=== PATIENT | female | born 1955 | race Caucasian/White ===

== ENCOUNTER → 2016-08-15 | Outpatient (CLI) | payer OTHER ==
--- NOTE | 2016-08-19 11:41 | MM ---
Reason for exam: screening (asymptomatic). Last mammogram was performed 2 years ago. History: Patient is postmenopausal. Took estrogen for 6 years beginning at age 46. Physical Findings: A clinical breast exam by your physician is recommended on an annual basis and results should be correlated with mammographic findings. MG Screening Mammo w CAD Bilateral CC and MLO view(s) were taken. Prior study comparison: August 30, 2014, bilateral MG screening mammo w CAD. December 22, 2012, CAD bilateral diagnostic mammogram. The breast tissue is extremely dense which could obscure a lesion on mammography. Finding: There are typically benign calcifications in both breasts. No significant changes in finding since August 30, 2014 and December 22, 2012. ASSESSMENT: Benign, BI-RAD 2 RECOMMENDATION: Routine screening mammogram of both breasts in 1 year.
== END | disposition home or self-care (01) ==
LOC: RADMAMWWP 16:49
PROVIDERS: ATTEND Family Medicine
DX: Z12.31 Encounter for screening mammogram for malignant neoplasm of breast (principal)

== ENCOUNTER 2016-11-21 06:50 | Day surgery (SDC) | payer OTHER ==
[2016-11-18 14:35] VITALS: BMI 23.6
[~2016-11-21 06:50] MED LIST: LACTATED RINGERS 1,000 ML IV SCH
[2016-11-21 07:01] VITALS: RESP 18; TEMP 98.2
[2016-11-21] MEDS ORDERED: LACTATED RINGERS 1,000 ML IV ONE (07:08)
[2016-11-21] MEDS ORDERED: PROPOFOL 10 MG/ML 20 ML VIAL IV ONE (07:46)
[2016-11-21] MEDS ORDERED: LIDOCAINE 1% INJ 10MG/ML (20 ML MDV) ONE (07:46)
--- NOTE | 2016-11-21 08:31 | P.OP ---
Date of Procedure: 11/21/16 Preoperative Diagnosis: Screening colonoscopy Postoperative Diagnosis: Sigmoid colon polyps Procedure(s) Performed: Colonoscopy with polypectomy using hot snare and cold biopsy forceps Implants: Anesthesia: KEVON Surgeon: Autumn Adrian Pathology: other Disposition: PACU Indications for Procedure: Operative Findings: Description of Procedure: The patient was brought to the endoscopy suite and placed in lateral decubitus position. IV sedation was given as per anesthesia team. A timeout was performed to verify correct patient and correct procedure.Perianal examination did not reveal any external hemorrhoids. Digital rectal examination was performed. A well-lubricated endoscope was passed per rectally and was gradually advanced beyond the sigmoid colon, splenic flexure, transverse colon, hepatic flexure and cecum. The ileocecal valve was visualized. Then no diverticulosis noted without any evidence of diverticulitis. Scope was gradually withdrawn inspecting all the mucosal surfaces. A few polypa were seen in the sigmoid colon at biopsied and completely removed with the help of a hot snare and cold biopsy forceps. Bowel prep was good. No other polyps or masses noted. Retroflexed in the rectum and moderate size internal hemorrhoids were noted which was not bleeding at this time. The scope was gradually withdrawn. Patient tolerated the procedure well and was taken to post anesthesia care unit in stable condition. Recommend repeat colonoscopy in 5 years Plan - Discharge Summary New Discharge Prescriptions: No Action Lutein 25 mg PO DAILY Loratadine [Claritin] 10 mg PO DAILY Lisinopril [Zestril] 20 mg PO DAILY Hydrochlorothiazide [Hydrodiuril] 25 mg PO DAILY Atorvastatin [Lipitor] 10 mg PO HS Alendronate Sodium [Fosamax] 70 mg PO MUÑOZ Ibuprofen [Motrin] 800 mg PO Q8H PRN PRN Reason: Pain Flaxseed Oil [[place]-3 Flaxseed Oil] 1,300 mg PO DAILY Ascorbic Acid [Vitamin C] 1,000 mg PO DAILY True Heart 1 tab PO DAILY [place] 3-6-9 1 cap PO DAILY Collagen Plus C 1 tab PO DAILY Magnesium 500 mg PO DAILY Marquise/D3/Mag11/Zinc/Safety Technician/Sree/Bor [Caltrate 600+D Plus Tablet] 1 each PO DAILY Cholecalciferol (Vitamin D3) [Vitamin D3] 2,000 unit PO DAILY Discharge Medication List Alendronate Sodium [Fosamax] 70 mg PO MUÑOZ 11/18/16 [History] Ascorbic Acid [Vitamin C] 1,000 mg PO DAILY 11/18/16 [History] Atorvastatin [Lipitor] 10 mg PO HS 11/18/16 [History] Marquise/D3/Mag11/Zinc/Safety Technician/Sree/Bor [Caltrate 600+D Plus Tablet] 1 each PO DAILY 08/02 [History] Cholecalciferol (Vitamin D3) [Vitamin D3] 2,000 unit PO DAILY 11/18/16 [History] Collagen Plus C 1 tab PO DAILY 11/18/16 [History] Flaxseed Oil [[place]-3 Flaxseed Oil] 1,300 mg PO DAILY 11/18/16 [History] Hydrochlorothiazide [Hydrodiuril] 25 mg PO DAILY 11/18/16 [History] Ibuprofen [Motrin] 800 mg PO Q8H PRN 11/18/16 [History] Lisinopril [Zestril] 20 mg PO DAILY 11/18/16 [History] Loratadine [Claritin] 10 mg PO DAILY 11/18/16 [History] Lutein 25 mg PO DAILY 11/18/16 [History] Magnesium 500 mg PO DAILY 11/18/16 [History] [place] 3-6-9 1 cap PO DAILY 11/18/16 [History] True Heart 1 tab PO DAILY 11/18/16 [History]
[2016-11-21 08:55] VITALS: BP 129/68; PULSE 70
== END 2016-11-21 09:14 | disposition home or self-care (01) ==
LOC: ORWHC2ENDO 06:50
PROVIDERS: ATTEND Surgery
DX: Z12.11 Encounter for screening for malignant neoplasm of colon (principal); K63.5 Polyp of colon; K64.8 Other hemorrhoids; I10 Essential (primary) hypertension; Z79.51 Long term (current) use of inhaled steroids; Z79.899 Other long term (current) drug therapy
CPT/HCPCS: 88305; 45385; J2001; J2704; 45380

== ENCOUNTER → 2017-09-16 | Outpatient (CLI) | payer OTHER ==
--- NOTE | 2017-09-17 10:39 | MM ---
Reason for exam: screening (asymptomatic). Last mammogram was performed 1 year and 1 month ago. History: Patient is postmenopausal. Took estrogen for 6 years beginning at age 46. Physical Findings: A clinical breast exam by your physician is recommended on an annual basis and results should be correlated with mammographic findings. MG Screening Mammo w CAD Bilateral CC and MLO view(s) were taken. Prior study comparison: August 15, 2016, bilateral MG screening mammo w CAD. August 30, 2014, bilateral MG screening mammo w CAD. The breast tissue is heterogeneously dense. This may lower the sensitivity of mammography. Stable benign calcifications. No significant changes when compared with prior studies. ASSESSMENT: Benign, BI-RAD 2 RECOMMENDATION: Routine screening mammogram of both breasts in 1 year.
== END ==
LOC: RADMAMWWP 16:46
PROVIDERS: ATTEND Family Medicine
DX: Z12.31 Encounter for screening mammogram for malignant neoplasm of breast (principal)
CPT/HCPCS: 77067

== ENCOUNTER → 2018-01-13 | Outpatient (CLI) | payer OTHER ==
[2018-01-13 15:57] LABS: HCT 40.3 % (34.0-46.0); HGB 13.7 gm/dL (11.4-16.0); MCH 30.2 pg (25.0-35.0); MCV 88.8 fL (80.0-100.0); Mean Platelet Volume 6.6; Platelet Count 297 k/uL (150-450); RBC 4.54 m/uL (3.80-5.40); RDW 13.4 % (11.5-15.5); WBC 7.9 k/uL (3.8-10.6)
[2018-01-13 16:37] LABS: C Reactive Protein <5.0 mg/L (<10.0); Uric Acid 6.8 mg/dL (3.7-7.4)
[2018-01-13 19:35] LABS: Erythrocyte Sedimentation Rate 2 mm/hr (0-20)
[2018-01-14 02:27] LABS: Protein, Total 6.5 g/dL (6.2-8.2); Rheumatoid Factor 9 IU/mL (0-15); Streptolysin O Ab(ASO) 123 IU/mL (0-200)
[2018-01-14 11:01] LABS: T4, Free (Free Thyroxine) 1.05 ng/dL (0.78-2.19)
[2018-01-14 11:14] LABS: HLA B27 NEGATIVE
[2018-01-14 13:38] LABS: Albumin 4.18 g/dL (3.80-4.90); Gamma Globulin 0.66 g/dL (0.70-1.50)
== END | disposition home or self-care (01) ==
LOC: LABWHC1 15:09
PROVIDERS: ATTEND Orthopaedic Surgery
DX: M25.561 Pain in right knee (principal); M25.461 Effusion, right knee; M17.11 Unilateral primary osteoarthritis, right knee; S83.241A Other tear of medial meniscus, current injury, right knee, initial encounter
CPT/HCPCS: 36415; 84165; 84439; 84443; 84550; 85027; 85652; 86038; 86060; 86140; 86431; 86618; 86812

== ENCOUNTER 2018-09-23 15:20 | Emergency (ER) | payer OTHER ==
[2018-09-23 15:33] VITALS: TEMP 99
[2018-09-23] MEDS ORDERED: ACETAMINOPHEN TAB 500 MG TAB PO STA (15:49)
--- NOTE | 2018-09-23 15:53 | ED ---
Head Injury HPI - General Chief complaint: Head Injury Stated complaint: [facility] - HEAD INJURY Time Seen by Provider: 09/23/18 15:37 Source: patient Mode of arrival: wheelchair Limitations: no limitations - History of Present Illness Initial comments: This is a 63-year-old female who presents emergency department for a head injury. She states that this morning she was at work when a large metal door was opened and hit her in the right side of the head. She states that she did not have any loss of consciousness and did not fall to the ground however did have a little bit of visual changes afterwards. She does not describe it as double vision however. She describes it as blurry vision. She states that she had a persistent headache on the right side of her head throughout the day. She's been having some difficulty with concentration and also a little bit of nausea. She denies any vomiting. She states that she does not take any anticoagulation or aspirin. She did try taking a Motrin 800 earlier today however she states it did not improve her symptoms. She denies any focal weakness in her arms or legs. She denies any photophobia or phonophobia. No difficulty with coordination or ambulation. No other acute complaints. - Related Data Home Medications Medication Instructions Recorded Confirmed Alendronate Sodium [Fosamax] 70 mg PO MUÑOZ 11/18/16 09/23/18 Ascorbic Acid [Vitamin C] 1,000 mg PO DAILY 11/18/16 09/23/18 Atorvastatin [Lipitor] 10 mg PO HS 11/18/16 09/23/18 Marquise/D3/Mag11/Zinc/Rn Radiology/Sree/Bor 1 tab PO DAILY 11/18/16 09/23/18 [Caltrate 600+D Plus Tablet] Cholecalciferol (Vitamin D3) 2,000 unit PO DAILY 11/18/16 09/23/18 [Vitamin D3] Collagen Plus C 1 tab PO DAILY 11/18/16 09/23/18 Flaxseed Oil [[place]-3 Flaxseed Oil] 1,000 mg PO DAILY 11/18/16 09/23/18 Hydrochlorothiazide [Hydrodiuril] 25 mg PO DAILY 11/18/16 09/23/18 Ibuprofen [Motrin] 800 mg PO Q8H PRN 11/18/16 09/23/18 Lisinopril [Zestril] 20 mg PO DAILY 11/18/16 09/23/18 Loratadine [Claritin] 10 mg PO DAILY 11/18/16 09/23/18 Lutein 20 mg PO DAILY 11/18/16 09/23/18 Magnesium 200 mg PO DAILY 11/18/16 09/23/18 [place] 3-6-9 1 cap PO DAILY 11/18/16 09/23/18 True Heart 1 tab PO DAILY 11/18/16 09/23/18 Allergies/Adverse reactions: Allergies Allergy/AdvReac Type Severity Reaction Status Date / Time No Known Allergies Allergy Verified 09/23/18 15:55 Review of Systems ROS Statement: Those systems with pertinent positive or pertinent negative responses have been documented in the HPI. ROS Other: All systems not noted in ROS Statement are negative. Past Medical History Past Medical History: Hyperlipidemia, Hypertension History of Any Multi-Drug Resistant Organisms: None Reported Past Surgical History: Hysterectomy, Orthopedic Surgery Additional Past Surgical History / Comment(s): LT KNEE, LT SHOULDER, RT THUMB SURG Past Anesthesia/Blood Transfusion Reactions: No Reported Reaction Smoking Status: Never smoker - Past Family History Mother Family Medical History: No Reported History General Exam - General Exam Comments Initial Comments: Constitutional: Awake alert Appears comfortable Head: Normocephalic atraumatic , tenderness to palpation along the temporal area of the right scalp. No lacerations or hematomas noted Eyes: no conjunctival injection No scleral icterus EOMI, pupils are 3 mm and reactive bilaterally Neck: No JVD Supple, no midline tenderness Heart: Regular rate rhythm normal S1-S2 no murmurs Lungs: Clear to auscultation bilaterally No wheezing No rales Abdomen: Soft nondistended nontender Extremities: Non edematous DP pulses intact Radial pulses intact Neuro: A&Ox3, cranial nerves II through XII are grossly intact, 5 out of 5 strength in upper and lower extremities bilaterally, no ataxia with finger-nose testing No focal neurologic deficits Psych: Appropriate mood and affect Limitations: no limitations Course Vital Signs 09/23/18 15:30 Temperature 99 F Pulse Rate 74 Respiratory 16 Rate Blood Pressure 156/86 O2 Sat by Pulse 97 Oximetry Medical Decision Making - Medical Decision Making This is a 63-year-old female who presents emergency department for headache injury. The patient had no focal neurologic deficits on examination however due to her symptoms and computed tomography scan was performed did not not show any evidence for abnormality. The patient did feel improved after Tylenol. She she was instructed on expectations of a concussion. She was instructed to abstain from any activities that make her headache or any of her symptoms worse. She was given a note for work for tomorrow. Instructed to follow-up closely with her primary doctor and have gradual return to activities. Can return emergency Department if she has worsening of her headache, nausea, vomiting, or mental status changes. All questions answered. Disposition Clinical Impression: Concussion Disposition: HOME SELF-CARE Condition: Stable Instructions (If sedation given, give patient instructions): Concussion (ED) Is patient prescribed a controlled substance at d/c from ED?: No Referrals: Wan Finch DO [Primary Care Provider] - 1-2 days
--- NOTE | 2018-09-23 16:21 | CT ---
EXAMINATION TYPE: CT brain wo con DATE OF EXAM: 09/23/2018 COMPARISON: None HISTORY: Headache after injury. CT DLP: 1111.[address] of the brain was performed. The ventricles, basal cisterns and sulci overlying the cerebral convexities demonstrate mild enlargem ent. There is no evidence for intracranial hemorrhage or sulcal effacement. There is decreased attenuation about the periventricular white matter and deep white matter of both c erebral hemispheres, compatible with chronic small vessel ischemia. Differential diagnosis does inclu de demyelination. No mass effects are seen.No midline shift. Osseous calvarium is intact. If symptoms persist consider MRI. IMPRESSION: 1. Age related atrophic and chronic small vessel ischemic change without acute intracranial process s een at this time.
[2018-09-23 17:04] VITALS: BP 148/93; PULSE 71; RESP 18
== END 2018-09-23 17:04 | disposition home or self-care (01) ==
LOC: EC 15:20
DX: S06.0X0A Concussion without loss of consciousness, initial encounter (principal); E78.5 Hyperlipidemia, unspecified; I10 Essential (primary) hypertension; Z79.899 Other long term (current) drug therapy; W22.8XXA Striking against or struck by other objects, initial encounter; Y93.89 Activity, other specified; Y92.69 Other specified industrial and construction area as the place of occurrence of the external cause; Y99.0 Civilian activity done for income or pay
CPT/HCPCS: 70450; 99283

== ENCOUNTER 2018-09-25 09:49 | Emergency (ER) | payer OTHER ==
[2018-09-25 10:00] VITALS: BP 156/90; PULSE 72; RESP 18; TEMP 98.4
--- NOTE | 2018-09-25 10:48 | CT ---
EXAMINATION TYPE: CT facial bones wo con DATE OF EXAM: 09/25/2018 COMPARISON: None HISTORY: Struck on Rt side of head 2 days ago. C/o Rt sided cheek and teeth pain CT DLP: 315.1 mGycm Automated exposure control for dose reduction was used. TECHNIQUE: CT scan of the sinuses is performed without contrast, axial images are obtained, coronal r eformatted images are also reviewed. FINDINGS: The paranasal sinuses including the frontal, ethmoid, sphenoid, and maxillary sinuses bila terally are well-aerated without abnormal opacification. Minimal right sphenoidal and ethmoidal sinu sitis noted. Parul cell noted bilaterally. The ostiomeatal complex is patent bilaterally on the cor onal images. Visualized portion of mastoid air cells show no abnormal opacification. The globes are intact bilate rally. There is hypertrophic and degenerative change of the vertebral column with facet arthropathy. Hyperos tosis of the frontal bone. Dental artifact does limit assessment facial bones. Lucency along the post erior margin of the mandible on the left as well corticated and appears chronic. IMPRESSION: 1. No acute fracture as visualized.
--- NOTE | 2018-09-25 11:18 | ED ---
Head Injury HPI - General Chief complaint: Head Injury Stated complaint: [facility] - recheck Time Seen by Provider: 09/25/18 10:10 Source: patient Mode of arrival: ambulatory Limitations: no limitations - History of Present Illness Initial comments: 63-year-old female presenting today for chief complaint of sent by [facility] clinic. She states that she is not sure why she is here. She states she told them she has had a headache since her head injury 2 days prior. She denies any increase or changes in the headache. She states she was told she had a concussion. It had negative imaging studies of the brain. Patient denies any numbness tingling or loss sensation of the upper extremities or lower extremity she denies any speech changes patient asymmetry shows a diplopia vision changes nausea vomiting. Patient states that she has had some right-sided facial pain. She states this is near the area where she had hit her face she denied any swelling of the eye or face. She states she was sent to the [facility] for CT of the facial bones. Remaining review of systems negative upon arrival patient amidst to dull aching headache she denies taking medications prior to arrival. She appears well no signs of acute distress. - Related Data Home Medications Medication Instructions Recorded Confirmed Alendronate Sodium [Fosamax] 70 mg PO MUÑOZ 11/18/16 09/25/18 Ascorbic Acid [Vitamin C] 1,000 mg PO DAILY 11/18/16 09/25/18 Atorvastatin [Lipitor] 10 mg PO HS 11/18/16 09/25/18 Marquise/D3/Mag11/Zinc/Coke Crusher Operator/Sree/Bor 1 tab PO DAILY 11/18/16 09/25/18 [Caltrate 600+D Plus Tablet] Cholecalciferol (Vitamin D3) 2,000 unit PO DAILY 11/18/16 09/25/18 [Vitamin D3] Collagen Plus C 1 tab PO DAILY 11/18/16 09/25/18 Flaxseed Oil [[place]-3 Flaxseed Oil] 1,000 mg PO DAILY 11/18/16 09/25/18 Hydrochlorothiazide [Hydrodiuril] 25 mg PO DAILY 11/18/16 09/25/18 Ibuprofen [Motrin] 800 mg PO Q8H PRN 11/18/16 09/25/18 Lisinopril [Zestril] 20 mg PO DAILY 11/18/16 09/25/18 Loratadine [Claritin] 10 mg PO DAILY 11/18/16 09/25/18 Lutein 20 mg PO DAILY 11/18/16 09/25/18 Magnesium 200 mg PO DAILY 11/18/16 09/25/18 [place] 3-6-9 1 cap PO DAILY 11/18/16 09/25/18 True Heart 1 tab PO DAILY 11/18/16 09/25/18 Allergies/Adverse reactions: Allergies Allergy/AdvReac Type Severity Reaction Status Date / Time No Known Allergies Allergy Verified 09/25/18 10:10 Review of Systems ROS Statement: Those systems with pertinent positive or pertinent negative responses have been documented in the HPI. ROS Other: All systems not noted in ROS Statement are negative. Past Medical History Past Medical History: Hyperlipidemia, Hypertension History of Any Multi-Drug Resistant Organisms: None Reported Past Surgical History: Hysterectomy, Orthopedic Surgery Additional Past Surgical History / Comment(s): LT KNEE, LT SHOULDER, RT THUMB SURG Past Anesthesia/Blood Transfusion Reactions: No Reported Reaction Past Psychological History: No Psychological Hx Reported Smoking Status: Never smoker Past Alcohol Use History: None Reported Past Drug Use History: None Reported - Past Family History Mother Family Medical History: No Reported History General Exam - General Exam Comments Initial Comments: General: The patient is awake and alert, in no distress, and does not appear acutely ill. Eye: Pupils are equal, round and reactive to light, extra-ocular movements are intact. No nystagmus. There is normal conjunctiva bilaterally. No signs of icterus. Ears, nose, mouth and throat: There are moist mucous membranes and no oral lesions. No raccoon or Hicks sign. No midline tenderness patient cervical spine. No swelling of the orbits. Neck: The neck is supple, there is no tenderness or JVD. Cardiovascular: There is a regular rate and rhythm. No murmur, rub or gallop is appreciated. Respiratory: Lungs are clear to auscultation, respirations are non-labored, breath sounds are equal. No wheezes, stridor, rales, or rhonchi. Musculoskeletal: Normal ROM, no tenderness. Strength 5/5. Sensation intact. Pulses equal bilaterally 2+. Neurological: A&O x 3. CN II-XII intact, memory intact to immediately, intermediate and intermediate card tender recall. Able to follow simple verbal. Able to name a common object (pen). High quality, labial (pa) and lingual (la) speech. Low quality posterior pharynx/larynx (ga) voice sounds. Able to express general knowledge.. No hemineglect or inattention noted. Finger agnosia (-) and spatially oriented. Light touch and temperature sensation present over the face, chest, abdomen, back, UE bilaterally, and LE bilaterally. Able to localize point during point localization b/l and extinction. No visible bulk atrophy, hypertrophy, fasciculations, or myoclonus of the UE or LE b/l. Full PROM in UE and LE b/l. Bilateral muscle strength 5/5 for the following muscles: deltoid, biceps, triceps, brachioradialis, wrist extensors/flexor, hip flexor, hip abductors/adductors, hamstrings, quadriceps, feet dorsiflexors/plantar flexors. Finger to nose, finger to the examiners finger, and heel to jasmine coordinated and accurate b/l. Coordinated and even demonstration of hand flip, finger to thumb, and toe tap b/l. Gait is coordinated and even in stride with tandem. (-) Romberg. (-) pronator drift. No nuchal rigidity. Skin: Skin is warm and dry and no rashes or lesions are noted. Psychiatric: Cooperative, appropriate mood & affect, normal judgment. Limitations: no limitations Course Vital Signs 09/25/18 09:56 Temperature 98.4 F Pulse Rate 72 Respiratory 18 Rate Blood Pressure 156/90 O2 Sat by Pulse 99 Oximetry Medical Decision Making - Medical Decision Making 63-year-old female presenting for CT of the facial bones as sent by S. CT of facial bones without abnormality. No focal neurological deficits on examination. Patient recently diagnosed with concussion. Denies any changes and headache. This type of patient still for discharge with outpatient symptomatic treatment repeat neurological exam with primary care provider on Friday and return as discussed. I discussed if headache persists worsens or she is any other concerning signs or symptoms she is to return to [facility] department. Patient verbalizes understanding. Patient states she did not feel she needed come to emergency department today. Discussed the case intensified her Dr. Mcdonough who scribbled patient discharging care plan today. Disposition Clinical Impression: Head injury, Concussion, Headache Disposition: HOME SELF-CARE Condition: Good Instructions (If sedation given, give patient instructions): Concussion (ED) Additional Instructions: Please use medication as discussed. Please follow-up with family doctor in the next 2 days, and [facility] as scheduled for Friday. Please return to emergency room if the symptoms increase or worsen or for any other concerns. Is patient prescribed a controlled substance at d/c from ED?: No Referrals: Wan Finch DO [Primary Care Provider] - 1-2 days Time of Disposition: 11:18
== END 2018-09-25 11:52 | disposition home or self-care (01) ==
LOC: EC 09:49
DX: S06.0X0A Concussion without loss of consciousness, initial encounter (principal); E78.5 Hyperlipidemia, unspecified; I10 Essential (primary) hypertension; Z79.899 Other long term (current) drug therapy; W22.8XXA Striking against or struck by other objects, initial encounter; Y92.69 Other specified industrial and construction area as the place of occurrence of the external cause; Y99.0 Civilian activity done for income or pay
CPT/HCPCS: 70486; 99283

== ENCOUNTER → 2018-10-28 | Outpatient (CLI) | payer OTHER ==
--- NOTE | 2018-10-29 09:52 | MM ---
Reason for exam: screening (asymptomatic). Last mammogram was performed 1 year and 1 month ago. History: Patient is postmenopausal. Took estrogen for 6 years beginning at age 46. Physical Findings: A clinical breast exam by your physician is recommended on an annual basis and results should be correlated with mammographic findings. MG 3D Screening Mammo W/Cad Bilateral CC and MLO view(s) were taken. Prior study comparison: September 16, 2017, bilateral MG screening mammo w CAD. August 15, 2016, bilateral MG screening mammo w CAD. The breast tissue is extremely dense which could obscure a lesion on mammography. Benign appearing bilateral calcifications. No significant changes when compared with prior studies. ASSESSMENT: Benign, BI-RAD 2 RECOMMENDATION: Routine screening mammogram of both breasts in 1 year.
== END | disposition home or self-care (01) ==
LOC: RADMAMWWP 16:17
PROVIDERS: ATTEND Family Medicine
DX: Z12.31 Encounter for screening mammogram for malignant neoplasm of breast (principal)
CPT/HCPCS: 77063; 77067

== ENCOUNTER → 2019-02-26 | Outpatient (CLI) | payer OTHER ==
--- NOTE | 2019-02-26 12:21 | EST ---
EXERCISE STRESS AGE: 64 SEX: F HT: 5'5" WT: 165 PROTOCOL: Andrew Stress Test STAGE: 4 DURATION OF EXERCISE: 9:26 HEART RATE REST: 67 BLOOD PRESSURE REST: 134/82 MAXIMUM HEART RATE ACHIEVED: 141 MAXIMUM BLOOD PRESSURE: 154/76 85% MPHR: 133 100% MPHR: 159 METS: 10.9 INDICATIONS: Chest pain. CLINICAL INFORMATION: Patient was exercised for a total period of 9 minutes and 30 seconds. A peak heart rate of 141 was achieved. Maximum blood pressure of 154/76 mmHg was noted. The resting EKG shows normal sinus rhythm with normal [place] interval and QRS duration and normal ST-T waves. No ST-segment depression suggestive of ischemia is noted. Occasional PVCs are noted. Patient did not complain of any anginal pain during the test. FINAL IMPRESSION: 1. This exercise test is not suggestive of ischemia. 2. Patient's exercise tolerance is normal. 3. Occasional premature ventricular contractions are noted. 4. Patient did not complain of any anginal pain during the test. MMODL / IJN: [id number] /
== END | disposition home or self-care (01) ==
LOC: RADNMMAIN 08:33
PROVIDERS: ATTEND Family Medicine
DX: R07.9 Chest pain, unspecified (principal)
CPT/HCPCS: 93017

== ENCOUNTER → 2020-01-05 | Outpatient (CLI) | payer OTHER ==
[2020-01-05 15:05] VITALS: BP 141/77; PULSE 80; RESP 18; TEMP 98.5
--- NOTE | 2020-01-05 15:58 | P.GSHP ---
History of Present Illness H&P Date: 01/05/20 Chief Complaint: bloody nipple discharge Verna is a 64 year old white female seen for DR. Finch regarding right breast bloody nipple discharge. This has been on going for 3 months. The discharge is noted in her bra, and was red in nature. No discharge from the left breast. The frequency of the discharge has decreased somewhat but it is still persistent. She also notes pain in the upper outer quadrant area of the right breast. She does not have any history of trauma or infection of either breast. She does not feel any lumps masses or nodules in her breast. She had a bilateral mammogram and October 2018 which was benign BIRADS 2, she has another mammogram scheduled for [id number]. She has never had anything like this in the past. Caffeine: diet pepsi on week end Nicotine: Negative Theophylline: daily Family history: Father: Lung cancer Mother: Questionable cancer Hormonal History: menarche: 14 , breast fed: no age at first : 24 menopause: total hysterectomy in 40's for bleeding BCP: 3 years hormones: none Surgical history: 1. Total abdominal hysterectomy 2. right shoulder surgery 3. knee surgery left Medical History: 1. HTN 2. high cholesterol Social history: Nicotine: Negative Alcohol: Negative Drugs: Negative - Constitutional Constitutional: Denies chills, Denies fever - EENT Comment: blurred vision Ears: deny: decreased hearing, tinnitus Ears, nose, mouth and throat: Denies headache, Denies sore throat - Breasts Breasts: bilateral: as per HPI - Cardiovascular Cardiovascular: Denies chest pain, Denies shortness of breath - Respiratory Respiratory: Denies cough, Denies 7 - Gastrointestinal Gastrointestinal: Denies abdominal pain, Denies diarrhea, Denies nausea, Denies vomiting - Genitourinary (Female) Genitourinary: Denies dysuria, Denies hematuria - Menstruation Menstruation: Reports post hysterectomy - Musculoskeletal Musculoskeletal: Reports myalgias - Integumentary Integumentary: Denies pruritus, Denies rash - Neurological Neurological: Denies numbness, Denies weakness - Psychiatric Psychiatric: Denies anxiety, Denies depression - Endocrine Endocrine: Denies fatigue, Denies weight change - Hematologic/Lymphatic Comment: none - Allergic/Immunologic Allergic/Immunologic: Reports as per HPI, Reports seasonal allergies Past Medical History Past Medical History: Hyperlipidemia, Hypertension History of Any Multi-Drug Resistant Organisms: None Reported Past Surgical History: Hysterectomy, Orthopedic Surgery Additional Past Surgical History / Comment(s): LT KNEE, LT SHOULDER, RT THUMB SURG Past Anesthesia/Blood Transfusion Reactions: No Reported Reaction Past Psychological History: No Psychological Hx Reported Smoking Status: Never smoker Past Alcohol Use History: None Reported Past Drug Use History: None Reported - Past Family History Mother Family Medical History: No Reported History Medications and Allergies Home Medications Medication Instructions Recorded Confirmed Type Alendronate Sodium [Fosamax] 70 mg PO MUÑOZ 11/18/16 01/05/20 History Ascorbic Acid [Vitamin C] 1,000 mg PO DAILY 11/18/16 01/05/20 History Atorvastatin [Lipitor] 10 mg PO HS 11/18/16 01/05/20 History Marquise/D3/Mag11/Zinc/Logistics Project Manager/Sree/Bor 1 tab PO DAILY 11/18/16 01/05/20 History [Caltrate 600+D Plus Tablet] Cholecalciferol (Vitamin D3) 2,000 unit PO DAILY 11/18/16 01/05/20 History [Vitamin D3] Collagen Plus C 1 tab PO DAILY 11/18/16 01/05/20 History Flaxseed Oil [Lucas-3 Flaxseed Oil] 1,000 mg PO DAILY 11/18/16 01/05/20 History Ibuprofen [Motrin] 800 mg PO Q8H PRN 11/18/16 01/05/20 History Loratadine [Claritin] 10 mg PO DAILY 11/18/16 01/05/20 History Lutein 20 mg PO DAILY 11/18/16 01/05/20 History Magnesium 200 mg PO DAILY 11/18/16 01/05/20 History Lucas 3-6-9 1 cap PO DAILY 11/18/16 01/05/20 History True Heart 1 tab PO DAILY 11/18/16 01/05/20 History hydroCHLOROthiazide [Hydrodiuril] 25 mg PO DAILY 11/18/16 01/05/20 History lisinopriL [Zestril] 20 mg PO DAILY 11/18/16 01/05/20 History Allergies Allergy/AdvReac Type Severity Reaction Status Date / Time No Known Allergies Allergy Verified 01/05/20 14:58 Surgical - Exam Vital Signs Temp Pulse Resp BP Pulse Ox 98.5 F 80 18 141/77 95 01/05/20 15:01 01/05/20 15:01 01/05/20 15:01 01/05/20 15:01 01/05/20 15:01 BMI 26.5 - General well developed, well nourished, no distress - Eyes normal ocular movement - ENT no hearing loss, no congestion - Neck no masses, trachea midline - Respiratory normal respiratory effort, clear to auscultation - Cardiovascular Rhythm: regular Heart Sounds: normal: S1, S2 - Abdomen Abdomen: soft, non tender, no guarding, no rigid, no rebound - Integumentary normal turgor - Neurologic no disoriented, no combative - Musculoskeletal normal gait, normal posture - Psychiatric oriented to time, oriented to person, oriented to place, speech is normal, memory intact breast exam: bra 36C inspection: ptosis grade 2 bilateral Palpation: Right breast: multi positional exam fibrocystic changes, palpation reveals discharge from the 4 o'clock position of the right nipple, this is guaiac positive for blood no dominant masses or nodules noted Right axilla: No adenopathy of concern left breast: Multiple positional exam fibrocystic changes, no dominant masses or nodules of concern No nipple discharge on the left Left axilla: No adenopathy of concern Results Mammogram scheduled for next week Assessment and Plan Assessment: Impression: 1. Nipple discharge right breast 2. Patient to have bilateral mammogram next week 3. Borderline hypertension 4. High cholesterol Plan: 1. Await results of mammogram 2. Duct exploration right breast possible breast biopsy also depending on results of mammogram CC: Dr. Finch encounter 45 minutes, > 50% of time in planning and counselling
== END | disposition home or self-care (01) ==
LOC: WWCWWP 14:48
PROVIDERS: ATTEND Surgery
DX: Z53.9 Procedure and treatment not carried out, unspecified reason (principal)

== ENCOUNTER → 2020-01-10 | Outpatient (CLI) | payer OTHER ==
--- NOTE | 2020-01-11 09:21 | MM ---
Reason for exam: additional evaluation requested from prior study. Last mammogram was performed 1 year and 2 months ago. History: Patient is postmenopausal. Took hormonal contraceptives for 3 years. Took estrogen for 6 years beginning at age 46. Physical Findings: Nurse did not find any significant physical abnormalities on exam. MG 3D Diag Mammo W/Cad ASHLEY Bilateral CC and MLO view(s) were taken. Prior study comparison: October 28, 2018, bilateral MG 3d screening mammo w/cad. September 16, 2017, bilateral MG screening mammo w CAD. The breast tissue is heterogeneously dense. This may lower the sensitivity of mammography. Scattered benign oil cyst calcifications. No significant new findings when compared with previous films. These results were verbally communicated with the patient and result sheet given to the patient on 01/10/20. ASSESSMENT: Incomplete: need additional imaging evaluation, BI-RAD 0 RECOMMENDATION: Ultrasound of the right breast. (for reported bloody nipple discharge)
--- NOTE | 2020-01-11 09:23 | USB ---
Reason for exam: additional evaluation requested from abnormal screening. History: Patient is postmenopausal. Took hormonal contraceptives for 3 years. Took estrogen for 6 years beginning at age 46. US Breast RT Right complete breast ultrasound includes all four quadrants, the retroareolar region and axilla. Finding demonstrates no cystic or solid lesion seen. These results were verbally communicated with the patient and result sheet given to the patient on 01/10/20. ASSESSMENT: Probably benign, BI-RAD 3 RECOMMENDATION: Follow-up diagnostic mammogram of the right breast in 6 months. Manage on a clinical basis with regard to right breast nipple discharge. Suspicious discharge that would warrant further evaluation includes clear or bloody spontaneous discharge localized to a single pore on the nipple. If such discharge is encountered MRI or ductogram can be considered.
== END | disposition home or self-care (01) ==
LOC: RADMAMWWP 14:37
PROVIDERS: ATTEND Family Medicine
DX: N64.52 Nipple discharge (principal); R92.8 Other abnormal and inconclusive findings on diagnostic imaging of breast
CPT/HCPCS: 77062; 77066

== ENCOUNTER → 2020-01-27 | Outpatient (CLI) | payer OTHER ==
[2020-01-27 16:11] VITALS: BP 129/83; PULSE 72; RESP 18; TEMP 98.3
--- NOTE | 2020-01-27 16:24 | P.PN ---
Progress Note - Text Progress Note Date: 01/27/20 Verna is a 65-year-old [place] [address] with a complaint of right breast bloody nipple discharge. At that time on examination she was noted to have discharge from the 4 o'clock position of the right nipple which was quite positive for blood. No dominant masses or nodules were noted. From the left breast no dominant masses or nodules were noted and no discharge was identified. [place] [address]. This revealed dense tissue with scattered benign oral cysts. Was felt to be incomplete and ultrasound of the right breast was recommended. [place] [address] this did not reveal any cystic or solid lesions of concern. Despite this the patient continues to have bloody right breast nipple discharge. Therefore it is recommended that she undergo a right duct exploration. The risks and benefits of the procedure been discussed with the patient. She understands and wishes to proceed. Impression: 1. right breast bloody nipple discharge 4 OClock area Plan: 1. right breast duct exploration CC: DR. Finch encounter 10 minutes > 50% of time in planning and counselling
== END | disposition home or self-care (01) ==
LOC: WWCWWP 16:03
PROVIDERS: ATTEND Surgery
DX: Z53.9 Procedure and treatment not carried out, unspecified reason (principal)

== ENCOUNTER 2020-03-07 12:27 | Day surgery (SDC) | payer OTHER ==
--- NOTE | 2020-03-01 13:29 | P.GSHP ---
History of Present Illness H&P Date: 03/01/20 Chief Complaint: bloody nipple discharge Verna is a 64 year old white female seen for DR. Finch regarding right breast bloody nipple discharge. This has been on going for 5 months. The discharge is noted in her bra, and was red in nature. No discharge from the left breast. The frequency of the discharge has decreased somewhat but it is still persistent. She also notes pain in the upper outer quadrant area of the right breast. She does not have any history of trauma or infection of either breast. She does not feel any lumps masses or nodules in her breast. She had a bilateral mammogram and October 2018 which was benign BIRADS 2, [place] [address]. This was felt to be incomplete and ultrasound of the right breast was recommended. Ultrasound of the right breast was performed on the same day this did not reveal any cystic or solid lesions of concern. Despite this the patient continued to have bloody right nipple discharge. It was recommended that she undergo a right duct exploration. She has never had anything like this in the past. Caffeine: diet pepsi on week end Nicotine: Negative Theophylline: daily Family history: Father: Lung cancer Mother: Questionable cancer Hormonal History: menarche: 14 , breast fed: no age at first : 24 menopause: total hysterectomy in 40's for bleeding BCP: 3 years hormones: none Surgical history: 1. Total abdominal hysterectomy 2. right shoulder surgery 3. knee surgery left Medical History: 1. HTN 2. high cholesterol Social history: Nicotine: Negative Alcohol: Negative Drugs: Negative - Constitutional Constitutional: Denies chills, Denies fever - EENT Eyes: bilateral blurred vision Ears: deny: decreased hearing, tinnitus Ears, nose, mouth and throat: Denies headache, Denies sore throat - Breasts Breasts: bilateral: as per HPI - Cardiovascular Cardiovascular: Denies chest pain, Denies shortness of breath - Respiratory Respiratory: Denies cough, Denies 7 - Gastrointestinal Gastrointestinal: Denies abdominal pain, Denies diarrhea, Denies nausea, Denies vomiting - Genitourinary (Female) Genitourinary: Denies dysuria, Denies hematuria - Menstruation Menstruation: Reports post hysterectomy - Musculoskeletal Musculoskeletal: Reports myalgias - Integumentary Integumentary: Denies pruritus, Denies rash - Neurological Neurological: Denies numbness, Denies weakness - Psychiatric Psychiatric: Denies anxiety, Denies depression - Endocrine Endocrine: Denies fatigue, Denies weight change - Hematologic/Lymphatic Comment: none - Allergic/Immunologic Allergic/Immunologic: Reports as per HPI, Reports seasonal allergies Past Medical History Past Medical History: Hyperlipidemia, Hypertension History of Any Multi-Drug Resistant Organisms: None Reported Past Surgical History: Hysterectomy, Orthopedic Surgery Additional Past Surgical History / Comment(s): LT KNEE, LT SHOULDER, RT THUMB SURG Past Anesthesia/Blood Transfusion Reactions: No Reported Reaction Past Psychological History: No Psychological Hx Reported Smoking Status: Never smoker Past Alcohol Use History: None Reported Past Drug Use History: None Reported - Past Family History Mother Family Medical History: No Reported History Medications and Allergies Home Medications Medication Instructions Recorded Confirmed Type Alendronate Sodium [Fosamax] 70 mg PO MUÑOZ 11/18/16 01/27/20 History Ascorbic Acid [Vitamin C] 1,000 mg PO DAILY 11/18/16 01/27/20 History Atorvastatin [Lipitor] 10 mg PO HS 11/18/16 01/27/20 History Marquise/D3/Mag11/Zinc/Information Systems Professor/Sree/Bor 1 tab PO DAILY 11/18/16 01/27/20 History [Caltrate 600+D Plus Tablet] Cholecalciferol (Vitamin D3) 2,000 unit PO DAILY 11/18/16 01/27/20 History [Vitamin D3] Collagen Plus C 1 tab PO DAILY 11/18/16 01/27/20 History Flaxseed Oil [Hayes-3 Flaxseed Oil] 1,000 mg PO DAILY 11/18/16 01/27/20 History Ibuprofen [Motrin] 800 mg PO Q8H PRN 11/18/16 01/27/20 History Loratadine [Claritin] 10 mg PO DAILY 11/18/16 01/27/20 History Lutein 20 mg PO DAILY 11/18/16 01/27/20 History Magnesium 200 mg PO DAILY 11/18/16 01/27/20 History Hayes 3-6-9 1 cap PO DAILY 11/18/16 01/27/20 History True Heart 1 tab PO DAILY 11/18/16 01/27/20 History hydroCHLOROthiazide [Hydrodiuril] 25 mg PO DAILY 11/18/16 01/27/20 History lisinopriL [Zestril] 20 mg PO DAILY 11/18/16 01/27/20 History Allergies Allergy/AdvReac Type Severity Reaction Status Date / Time No Known Allergies Allergy Verified 01/27/20 16:11 Surgical - Exam BMI 26.5 - General well developed, well nourished, no distress - Eyes normal ocular movement - ENT no hearing loss - Neck no masses, trachea midline - Respiratory normal respiratory effort, clear to auscultation - Cardiovascular Rhythm: regular Heart Sounds: normal: S1, S2 - Abdomen Abdomen: soft, non tender, no guarding, no rigid, no rebound - Neurologic no disoriented, no combative - Musculoskeletal normal gait, normal posture - Psychiatric oriented to time, oriented to person, oriented to place, speech is normal, memory intact Breast examination: Bra 30 6C Inspection: Ptosis grade 2 bilateral Palpation: Right breast: Multiple positional exam fibrocystic changes, the patient reveals discharge from the 4 o'clock position of the right nipple. This is quite positive for blood no dominant masses or nodules of concern noted Right axilla: No adenopathy of concern Left breast: Multi-positional exam fibrocystic changes no dominant masses or nodules of concern no nipple discharge on the left Left axilla: No adenopathy of concern Results Mammogram and ultrasound results reviewed Assessment and Plan Assessment: Impression: 1. Nipple discharge right breast/guaiac positive 2. Bilateral mammogram 820 420 resulted in right breast ultrasound no lesions of concern noted 3. Borderline hypertension 4. High cholesterol Plan: 1. Duct exploration right breast 4:00 area secondary to bloody nipple discharge
[2020-03-03 15:30] VITALS: BMI 24.3
[~2020-03-07 12:27] MED LIST changes: +DEXAMETHASONE SOD PHOSPHATE 10 MG/ML 1 ML VIAL IV ONE; +HEPARIN SODIUM,PORCINE 5,000 UNIT/ML 1 ML VIAL SQ ONE; +HYDROmorphone 0.5 MG/0.5 ML SYRINGE IVP PRN; +LIDOCAINE 1% (10MG/ML) FOR IV START INTRADERMA PRN; +MIDAZOLAM 2 MG/2 ML VIAL IV PRN; +ONDANSETRON 4 MG/2 ML VIAL IVP ONE; +Pre Op ABX Message 1 EACH MISC MISCELLANE ONE
[2020-03-07] MEDS ORDERED: LIDOCAINE 1% INJ 10MG/ML (20 ML MDV) ONE (14:49)
[2020-03-07] MEDS ORDERED: MIDAZOLAM 2 MG/2 ML VIAL ONE (14:49)
[2020-03-07] MEDS ORDERED: SUCCINYLCHOLINE CHLORIDE 100 MG/5 ML SYR IV ONE (14:49)
[2020-03-07] MEDS ORDERED: PROPOFOL 10 MG/ML 20 ML VIAL IV ONE (14:49)
[2020-03-07] MEDS ORDERED: fentaNYL (PF) 50 MCG/ML 2 ML AMP ONE (14:49)
--- NOTE | 2020-03-07 15:56 | P.OP ---
Date of Procedure: 03/07/20 Preoperative Diagnosis: Nipple discharge right breast bloody at 4:00 Postoperative Diagnosis: Same Procedure(s) Performed: Duct excision Anesthesia: KEVON Surgeon: Eva Dueñas Estimated Blood Loss (ml): 3 IV fluids (ml): 500 Pathology: other (breast tissue) Condition: stable Disposition: same day Indications for Procedure: bloody nipple discharge right nipple at 4 oclock Operative Findings: dense breast tissue Description of Procedure: The periareolar incision was made at the 4 o'clock position of the right breast. This was carried down through the skin and subcutaneous tissue to the breast tissue. Dilated duct was identified and this was resected and a cone of tissue from the anterior surface to posteriorly to the pectoralis muscle. Circumferential dissection was performed. The wound was evaluated for hemostasis. After assured that hemostasis was attained titanium clip was placed, one superior and two medial. The specimen was painted for orientation. The deep tissues were closed using 3-0 Vicryl suture. The skin was closed using 3-0 Vicryl subcutaneous suture. 4-0 Monocryl was placed. A nylon skin suture was placed. The patient tolerated the procedure in stable condition. All instrument and sponge counts were correct at the end of the case.
[2020-03-07 16:07] VITALS: TEMP 98.9
[2020-03-07 17:17] VITALS: RESP 16
[2020-03-07 17:29] VITALS: BP 155/79; PULSE 65
== END 2020-03-07 18:06 | disposition home or self-care (01) ==
LOC: OR 12:27
PROVIDERS: ATTEND Surgery
DX: N64.52 Nipple discharge (principal); Z90.710 Acquired absence of both cervix and uterus; Z98.890 Other specified postprocedural states; E78.49 Other hyperlipidemia; I10 Essential (primary) hypertension; E78.00 Pure hypercholesterolemia, unspecified; Z79.83 Long term (current) use of bisphosphonates; Z79.899 Other long term (current) drug therapy
CPT/HCPCS: 19120; J2250; J1644; J1100; J2405; J2001; J3010; J0330; J2704; J1170; 88307

== ENCOUNTER → 2020-03-17 | Outpatient (CLI) | payer OTHER ==
--- NOTE | 2020-03-17 16:34 | P.PN ---
Progress Note - Text Progress Note Date: 03/17/20 Patient is a 65-year-old white female status post right breast duct exploration on [id number] bloody nipple discharge. Pathology revealed benign breast tissue with fibrocystic changes including ductal hyperplasia and papillomatosis. The patient has done well postoperatively. Physical exam: Incision clean and dry Impression: 1. 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 Remove sutures 2. Right breast mammogram in 6 months with exam CC: Dr. Finch
[2020-03-17 16:52] VITALS: BP 120/79; PULSE 73; RESP 18; TEMP 98.4
== END | disposition home or self-care (01) ==
LOC: WWCWWP 15:55
PROVIDERS: ATTEND Surgery
DX: Z53.9 Procedure and treatment not carried out, unspecified reason (principal)

== ENCOUNTER → 2020-03-28 | Outpatient (CLI) | payer OTHER ==
[2020-03-28 08:10] VITALS: BP 156/89; PULSE 77; RESP 18; TEMP 98.3
--- NOTE | 2020-03-28 08:29 | P.PN ---
Progress Note - Text Progress Note Date: 03/28/20 Verna is a 65-year-old white female status post right breast duct exploration and . She is doing well until 03-24-20 patient noted that the superior portion of the incision had opened slightly approximately 5 mm x 5 mm in size. She attributes this to some pushing and pulling that she was doing at work after her sutures were removed. She also described pain in the breast area with these actions. She has not had any fever or chills. Physical exam Lungs: Clear Heart: Regular rate and rhythm Breast: Approximately 5 x 5 mm area which is granulating at the superior region of the incision. Rest of incision is clean and dry and healing well. Impression: 1. Small opening approximate 5 x 5 mm superior aspect of incision healing at this time with no obvious infection granulation tissue present 2. Patient work activities seem to exacerbate discomfort at the site Plan: 1. Patient will be given work restrictions with no lifting or pulling for 2 weeks 2. Follow up in 2 weeks 3. Follow up sooner if any questions or concerns
== END | disposition home or self-care (01) ==
LOC: WWCWWP 07:56
PROVIDERS: ATTEND Surgery
DX: Z53.9 Procedure and treatment not carried out, unspecified reason (principal)

== ENCOUNTER → 2020-04-20 | Outpatient (CLI) | payer OTHER ==
[2020-04-20 16:38] VITALS: PULSE 81; RESP 16; TEMP 97.9
--- NOTE | 2020-04-20 16:48 | P.PN ---
Progress Note - Text Progress Note Date: 04/20/20 Verna is a 65-year-old white female status post right breast duct exploration on . She is doing well until 03-24-20 patient noted that the superior portion of the incision had opened slightly approximately 5 mm x 5 mm in size. She attributes this to some pushing and pulling that she was doing at work after her sutures were removed. She also described pain in the breast area with these actions. She has not had any fever or chills. She has had restrictions at work and decreased discomfort in her breast was completely healing of the wound. However since the restrictions were lifted she was again put on the machine which caused pain in her chest and radiated down to the area of the incision. I discussed this with her primary care doctor at this time and going to give her another week restriction she is going to call her primary care doctor to determine whether further restriction is appropriate Physical exam Lungs: Clear Heart: Regular rate and rhythm Breast: Approximately 5 x 5 mm area which is granulating at the superior region of the incision. Rest of incision is clean and dry and healing well. Impression: 1. incision well healed right breast 2. Patient work activities seem to exacerbate discomfort at the site Plan: 1. Patient will be given work restrictions with no lifting or pulling for 1 week 2. Follow up 6 months right brast mammogram 3. Follow up sooner if any questions or concerns CC: Dr. Finch
== END | disposition home or self-care (01) ==
LOC: WWCWWP 16:27
PROVIDERS: ATTEND Surgery
DX: Z53.9 Procedure and treatment not carried out, unspecified reason (principal)

== ENCOUNTER → 2020-09-05 | Outpatient (CLI) | payer OTHER ==
--- NOTE | 2020-09-06 08:35 | MM ---
Reason for exam: follow-up at short interval from prior study. Last mammogram was performed 8 months ago. History: Patient is postmenopausal. Took hormonal contraceptives for 3 years. Took estrogen for 6 years beginning at age 46. Physical Findings: Nurse did not find any significant physical abnormalities on exam. MG 3D Diag Mammo W/Cad RT CC and MLO view(s) were taken of the right breast. Prior study comparison: January 10, 2020, bilateral MG 3d diag mammo w/cad ASHLEY. October 28, 2018, bilateral MG 3d screening mammo w/cad. The breast tissue is heterogeneously dense. This may lower the sensitivity of mammography. New post surgical changes right breast. Additional follow up for any evolving surgical change. These results were verbally communicated with the patient and result sheet given to the patient on 09/05/20. ASSESSMENT: Probably benign, BI-RAD 3 RECOMMENDATION: Follow-up diagnostic mammogram of both breasts in 4 months. Back on schedule for December 2020.
== END | disposition home or self-care (01) ==
LOC: RADMAMWWP 14:23
PROVIDERS: ATTEND Surgery
DX: R92.8 Other abnormal and inconclusive findings on diagnostic imaging of breast (principal)
CPT/HCPCS: 77061; 77065

== ENCOUNTER → 2020-09-07 | Outpatient (CLI) | payer OTHER ==
[2020-09-07 15:59] VITALS: BP 132/82; PULSE 71; RESP 18; TEMP 98.2
--- NOTE | 2020-09-07 16:11 | P.PN ---
Subjective Progress Note Date: 09/07/20 Principal diagnosis: Surveillance bloody nipple discharge/ status post duct exploration Verna is a 65 year old white female seen for DR. Finch regarding right breast bloody nipple discharge. This had been on going for 3 months. The discharge was noted in her bra, and was red in nature. No discharge from the left breast. The frequency of the discharge had decreased somewhat but was still persistent. She also noted pain in the upper outer quadrant area of the right breast. She did not have any history of trauma or infection of either breast. She did not feel any lumps masses or nodules in her breast. She had a bilateral mammogram and October 2018 which was benign BIRADS 2. She had a bilateral mammogram and [id number] after which an ultrasound was recommended of the right breast. This was felt to be probably benign BIRADS 3. She had had a bilateral mammogram in December 2019. Mammogram and ultrasound were benign BIRADS 3. However secondary to the bloody nipple discharge she underwent a duct exploration on . This was benign with papillomatosis. Patient is doing well at this time with no complaints. She is not having any more nipple discharge. She did have a right breast mammogram performed on 09-05-20, which was a benign BIRADS 3 and bilateral mammogram was recommended in 4 months. Caffeine: diet pepsi on week end Nicotine: Negative Theophylline: daily Family history: Father: Lung cancer Mother: Questionable cancer Hormonal History: menarche: 14 , breast fed: no age at first : 24 menopause: total hysterectomy in 40's for bleeding BCP: 3 years hormones: none Surgical history: 1. Total abdominal hysterectomy 2. right shoulder surgery 3. knee surgery left Medical History: 1. HTN 2. high cholesterol Social history: Nicotine: Negative Alcohol: Negative Drugs: Negative - Constitutional Constitutional: Denies chills, Denies fever - EENT Comment: blurred vision Ears: deny: decreased hearing, tinnitus Ears, nose, mouth and throat: Denies headache, Denies sore throat - Breasts Breasts: bilateral: as per HPI - Cardiovascular Cardiovascular: Denies chest pain, Denies shortness of breath - Respiratory Respiratory: Denies cough - Gastrointestinal Gastrointestinal: Denies abdominal pain, Denies diarrhea, Denies nausea, Denies vomiting - Genitourinary (Female) Genitourinary: Denies dysuria, Denies hematuria - Menstruation Menstruation: Reports post hysterectomy - Musculoskeletal Musculoskeletal: Reports myalgias - Integumentary Integumentary: Denies pruritus, Denies rash - Neurological Neurological: Denies numbness, Denies weakness - Psychiatric Psychiatric: Denies anxiety, Denies depression - Endocrine Endocrine: Denies fatigue, Denies weight change - Hematologic/Lymphatic Comment: none - Allergic/Immunologic Allergic/Immunologic: Reports as per HPI, Reports seasonal allergies Objective - Vital Signs Vital signs: Vital Signs Temp 98.2 F 09/07/20 15:57 Pulse 71 09/07/20 15:57 Resp 18 09/07/20 15:57 BP 132/82 09/07/20 15:57 Pulse Ox 97 09/07/20 15:57 Intake & Output 09/06/20 09/07/20 09/07/20 18:59 06:59 18:59 Weight 71.668 kg - Constitutional General appearance: Present: average body habitus - EENT Eyes: Present: EOMI ENT: Present: hearing grossly normal - Neck Neck: Present: normal ROM - Respiratory Respiratory: bilateral: CTA - Cardiovascular Rhythm: regular Heart sounds: normal: S1, S2 - Integumentary Integumentary: Present: normal turgor - Musculoskeletal Musculoskeletal: Present: gait normal - Psychiatric Psychiatric: Present: A&O x's 3, appropriate affect, intact judgment & insight - Additional findings Additional findings: Breast exam: BRA: 38C inspection: Well-healed scar right breast, bilateral grade 2 ptosis Palpation: Right breast: Multi-positional exam fibrocystic changes no dominant masses or nodules of concern Right axilla: No adenopathy of concern Left breast: Multi-positional exam fibrocystic changes no dominant masses or nodules of concern Left axilla: No adenopathy of concern Assessment and Plan Assessment: Impression: HTN high cholesterol Fibrocystic breast changes Intraductal papillomatosis/prior bloody nipple discharge Plan: Repeat bilateral mammogram in January 2021 with physician examined that time 2. Follow up sooner if any questions or concerns 3. Medical management of medical conditions Cc: Dr. Finch
== END | disposition home or self-care (01) ==
LOC: WWCWWP 15:37
PROVIDERS: ATTEND Surgery
DX: N60.11 Diffuse cystic mastopathy of right breast (principal); N60.12 Diffuse cystic mastopathy of left breast; E78.00 Pure hypercholesterolemia, unspecified; I10 Essential (primary) hypertension

== ENCOUNTER → 2021-04-06 | Outpatient (CLI) | payer BC ==
--- NOTE | 2021-04-09 11:18 | MM ---
Reason for exam: screening (asymptomatic). Last mammogram was performed 7 months ago. History: Patient is postmenopausal. Took hormonal contraceptives for 3 years. Took estrogen for 6 years beginning at age 46. Physical Findings: A clinical breast exam by your physician is recommended on an annual basis and results should be correlated with mammographic findings. MG 3D Screening Mammo W/Cad Bilateral CC and MLO view(s) were taken. Prior study comparison: September 05, 2020, right breast MG 3d diag mammo w/cad RT. January 10, 2020, bilateral MG 3d diag mammo w/cad ASHLEY. The breast tissue is heterogeneously dense. This may lower the sensitivity of mammography. Post excisional changes right breast. Scattered benign oil cyst calcifications. No significant changes when compared with prior studies. ASSESSMENT: Benign, BI-RAD 2 RECOMMENDATION: Routine screening mammogram of both breasts in 1 year. Patient should continue monthly self breast exams. A negative report should not preclude additional follow up of suspicious palpable abnormalities.
== END | disposition home or self-care (01) ==
LOC: RADMAMWWP 07:47
PROVIDERS: ATTEND Family Medicine
DX: Z12.31 Encounter for screening mammogram for malignant neoplasm of breast (principal); Z78.0 Asymptomatic menopausal state
CPT/HCPCS: 77063; 77067

== ENCOUNTER → 2022-05-17 | Outpatient (CLI) | payer BC ==
--- NOTE | 2022-05-20 09:15 | MM ---
Reason for Exam: Screening (asymptomatic). Last mammogram was performed 1 year(s) and 1 month(s) ago. Patient History: Menarche at age 13. First Full-Term at age 22. Left ovary removed at age 46. Right ovary removed at age 46. Hysterectomy at age 46. Postmenopausal. Estrogen for 6 years from age 46 until age 52. Patient used Hormonal Contraceptives for 3 years. Risk Values: Katharine 5 year model risk: 1.5%. NCI Lifetime model risk: 5.4%. Prior Study Comparison: 01/10/2020 Bilateral Diagnostic Mammogram, [facility]. 09/05/2020 Right Diagnostic Mammogram, [facility]. 04/06/2021 Bilateral Screening Mammogram, [facility]. Tissue Density: The breast tissue is heterogeneously dense. This may lower the sensitivity of mammography. Findings: Analyzed By CAD. Scattered several benign-appearing round and dystrophic calcifications bilaterally are redemonstrated. Surgical clips and distortion medially in the right breast are again seen. There is no suspicious new group of microcalcifications or new suspicious mass in either breast. Overall Assessment: Benign, BI-RAD 2 Management: Screening Mammogram of both breasts in 1 year. Some advise bilateral breast ultrasound surveillance in patients with background dense tissue A clinical breast exam by your physician is recommended on an annual basis and results should be correlated with mammographic findings. Electronically signed and approved by: Krzysztof Buckner M.D.
== END | disposition home or self-care (01) ==
LOC: RADMAMWWP 08:30
PROVIDERS: ATTEND Family Medicine
DX: Z12.31 Encounter for screening mammogram for malignant neoplasm of breast (principal); Z78.0 Asymptomatic menopausal state
CPT/HCPCS: 77063; 77067

== ENCOUNTER → 2022-08-23 | Outpatient (CLI) | payer BC ==
--- NOTE | 2022-08-23 09:59 | XR ---
EXAMINATION TYPE: XR Hip Complete LT DATE OF EXAM: 08/23/2022 9:54 AM INDICATION: Patient age:Female; 67 years old; Reason for study: M25.552; PHH. COMPARISON: None. TECHNIQUE: The left hip was examined in the frontal and lateral projections and a AP pelvis. FINDINGS: Acute impacted mildly displaced left femoral neck fracture. No dislocation. Small joint eff usion. No significant soft tissue edema. Pelvic phleboliths. IMPRESSION: Acute impacted nondisplaced femoral neck fracture. A Yellow level critical message alert has been initiated for Wan Finch DO via the [employer] Critical Results System on 08/23/2022 9:56 AM. This message alert has been sent to Wan Cummins nd, DO via the preferences provided by the clinician for the receipt of Radiology Critical Findings. Message ID [id number].
== END | disposition home or self-care (01) ==
LOC: RADXRMAIN 09:31
PROVIDERS: ATTEND Family Medicine
DX: S72.045A Nondisplaced fracture of base of neck of left femur, initial encounter for closed fracture (principal)
CPT/HCPCS: 73502

== ENCOUNTER → 2022-10-17 | Outpatient (CLI) | payer BC ==
[2022-10-17 12:14] LABS: INR 0.9 (<1.2); Partial Thromboplastin Time 22.3 sec (22.0-30.0); Prothrombin Time 10.1 sec (9.0-12.0)
[2022-10-17 16:01] LABS: Basophils # (A) 0.04 X 10*3/uL (0.00-0.10); Basophils % (A) 0.5 %; Eosinophils # (A) 0.22 X 10*3/uL (0.04-0.35); HCT 43.2 % (37.2-46.3); HGB 14.7 g/dL (12.0-15.0); Immature Grans, Automated 0.3 %; Lymphocytes # (A) 1.97 X 10*3/uL (0.90-5.00); Lymphocytes % (A) 26.4 %; MCH 29.8 pg (27.0-32.0); MCV 87.6 fL (80.0-97.0); Mean Platelet Volume 9.7 fL (9.5-12.2); Monocytes % (A) 6.7 %; NRBC Per 100 WBC 0 /100 WBCS (0.0-0.0); Neutrophils % (A) 63.1 %; Platelet Count 354 X 10*3/uL (140-440); RBC 4.93 X 10*6/uL (4.10-5.20); RDW 12.6 % (11.5-14.5); WBC 7.45 X 10*3/uL (4.50-10.00)
[2022-10-17 16:11] LABS: African American GFR (CKD) 106.6 (60.0-200.0); Albumin/Globulin Ratio 2.24 (1.60-3.17); Anion Gap 13.9 mmol/L (10.00-18.00); Appearance,Urine Clear (Clear); BUN/Creat Ratio 24.81 Ratio (12.00-20.00); Bilirubin,Urine Negative (Negative); Blood Urea Nitrogen 16.4 mg/dL (9.0-27.0); Blood,Urine Negative (Negative); Calcium 10.8 mg/dL (8.7-10.3); Carbon Dioxide 29.4 mmol/L (20.0-27.5); Color,Urine Yellow (Yellow); Globulin 2.2 g/dL (1.6-3.3); Ketones,Urine Trace mg/dL (Negative); Nitrite,Urine Negative (Negative); Potassium 4.2 mmol/L (3.5-5.5); Specific Gravity,Urine 1.022 (1.001-1.030); Total Bilirubin 0.4 mg/dL (0.30-1.20); Total Protein 7.2 g/dL (6.2-8.2)
[2022-10-17 16:16] LABS: Bacteria,Urine None Seen /HPF (None Seen)
== END | disposition home or self-care (01) ==
LOC: LABPAT 09:46
PROVIDERS: ATTEND Orthopaedic Surgery
DX: Z01.818 Encounter for other preprocedural examination (principal); M16.12 Unilateral primary osteoarthritis, left hip; R94.31 Abnormal electrocardiogram [ECG] [EKG]
CPT/HCPCS: 80053; 81001; 85025; 85610; 85730; 87070; 93005

== ENCOUNTER 2022-10-25 05:52 | Day surgery (SDC) | payer BC ==
[~2022-10-25 05:52] MED LIST changes: -DEXAMETHASONE SOD PHOSPHATE 10 MG/ML 1 ML VIAL IV ONE; +DEXAMETHASONE SOD PHOSPHATE 4 MG/ML 1 ML VIAL IV ONE; -HEPARIN SODIUM,PORCINE 5,000 UNIT/ML 1 ML VIAL SQ ONE; -HYDROmorphone 0.5 MG/0.5 ML SYRINGE IVP PRN; -MIDAZOLAM 2 MG/2 ML VIAL IV PRN; -Pre Op ABX Message 1 EACH MISC MISCELLANE ONE
[2022-10-25] MEDS ORDERED: TRANEXAMIC ACID IN NACL,ISO-OS 1,000 MG in SALINE 1 100ML.BAG IVPB PRN (06:00)
[2022-10-25] MEDS ORDERED: DEXAMETHASONE SOD PHOSPHATE 10 MG/ML 1 ML VIAL IV PRN (06:00)
[2022-10-25] MEDS ORDERED: DOCUSATE 100 MG CAP PO PRN (06:00)
[2022-10-25] MEDS ORDERED: TRANEXAMIC ACID IN NACL,ISO-OS 1,000 MG in SALINE 1 100ML.BAG IV PRN (06:00)
[2022-10-25] MEDS ORDERED: ONDANSETRON 4 MG/2 ML VIAL IVP PRN (06:00)
[2022-10-25] MEDS ORDERED: oxyCODONE ER 10 MG TAB.ER.12H PO PRN (06:00)
[2022-10-25] MEDS ORDERED: KETOROLAC 15 MG/ML 1 ML VIAL IVP PRN (06:00)
[2022-10-25] MEDS ORDERED: FAMOTIDINE 20 MG/2 ML VIAL IVP PRN (06:00)
[2022-10-25] MEDS ORDERED: ACETAMINOPHEN TAB 500 MG TAB PO PRN (06:00)
[2022-10-25] MEDS ORDERED: LACTATED RINGERS 1,000 ML IV ONE ×3 (06:15→11:03)
[2022-10-25] MEDS ORDERED: HYDROmorphone 0.5 MG/0.5 ML SYRINGE IVP PRN (07:00)
[2022-10-25] MEDS ORDERED: MIDAZOLAM 2 MG/2 ML VIAL IVP ONE (07:10)
[2022-10-25] MEDS ORDERED: MIDAZOLAM 2 MG/2 ML VIAL ONE (07:33)
[2022-10-25] MEDS ORDERED: SUCCINYLCHOLINE CHLORIDE 200 MG/10 ML VIAL IV ONE (07:33)
[2022-10-25] MEDS ORDERED: ROCURONIUM 10 MG/ML (5 ML VIAL) IV ONE (07:33)
[2022-10-25] MEDS ORDERED: TRANEXAMIC ACID IN NACL,ISO-OS 1,000 MG/100 ML BAG ONE (07:33)
[2022-10-25] MEDS ORDERED: HYDROmorphone (PF) 1 MG/ML ONE (07:33)
[2022-10-25] MEDS ORDERED: ePHEDrine 50 MG/ML 1 ML VIAL ONE (07:33)
[2022-10-25] MEDS ORDERED: PROPOFOL 10 MG/ML 20 ML VIAL IV ONE (07:33)
[2022-10-25] MEDS ORDERED: LIDOCAINE 2% INJ 20 MG/ML (2 ML VIAL) ONE (07:33)
[2022-10-25] MEDS ORDERED: NEOSTIGMINE 1 MG/ML 10 ML VIAL ONE (07:33)
[2022-10-25] MEDS ORDERED: fentaNYL (PF) 50 MCG/ML 2 ML AMP ONE (07:33)
[2022-10-25] MEDS ORDERED: PHENYLEPHRINE-0.9% NACL SYG 1,000 MCG/10 ML SYRINGE ONE (07:33)
[2022-10-25] MEDS ORDERED: ROPIVACAINE 5 MG/ML 30 ML VIAL ONE (07:33)
[2022-10-25] MEDS ORDERED: GLYCOPYRROLATE 0.2 MG/ML 2 ML VIAL ONE (07:33)
[2022-10-25] MEDS ORDERED: SODIUM CHLORIDE 0.9% (PF) 10 ML VIAL ONE (07:33)
[2022-10-25] MEDS: ROPIVACAINE/EPI/CLONIDINE/KET 50 ML SYRINGE MISCELLANE PRN ×2 (08:29→09:35)
[2022-10-25] MEDS ORDERED: EPINEPHrine 2 MG in SODIUM CHLORIDE 0.9% 200 ML IV ONE (09:17)
--- NOTE | 2022-10-25 09:46 | P.ANPRN ---
Procedure Note - Anesthesia - Nerve Block Performed Left Reggie Time Out Performed: Yes (:) Date of Procedure: 10/25/22 Procedure Start Time: Procedure Stop Time: :15 Location of Patient: PreOp Indication: Acute Post-Operative Pain, Requested by Surgeon (Dr Vazquez) Sedation Type: Sedate with meaningful contact maintained Preparation: Sterile Prep Position: Supine Catheter: None Needle Types: Pajunk Needle Gauge: 21 Ultrasound used to visualize needle placement: Yes Ultrasound used to observe medication spread: Yes Injectate: 0.5% Ropivacaine (see comment for volume) (20cc +5cc PF Normal saline) Blood Aspirated: No Pain Paresthesia on Injection Noted: No Resistance on Injection: Normal Image Stored and Saved: Yes Events: Uneventful and Well Tolerated
--- NOTE | 2022-10-25 10:25 | P.OP ---
Date of Procedure: 10/25/22 Preoperative Diagnosis: 1. Subacute left valgus impacted femoral neck fracture 2. Fragility fracture and osteopenia Postoperative Diagnosis: Same Procedure(s) Performed: Left direct anterior total hip arthroplasty Implants: 1. Ancona Trident II Acetabular Cup, Size #50 2. Ancona Accolade C Size #4 Femoral Stem, Standard Offset 3. Dual Mobility OD 38 mm, ID 22.2 mm, +0 neck Anesthesia: KEVON, regional Surgeon: Zeus Vazquez Construction Driver #1: Benito Hobbs Estimated Blood Loss (ml): 200 IV fluids (ml): 1,100 Pathology: none sent Condition: stable Disposition: PACU Indications for Procedure: The patient is a very pleasant relatively healthy 67-year-old female who sustained a ground-level fall in August while in [place]. She presented to see me in September and was found to have a valgus impacted left femoral neck fracture. She had been weightbearing on it since her fall. We discussed observation since she had been weightbearing versus conversion to arthroplasty. Initially the patient wanted to observe, but due to increasing pain and difficulty ambulating in her left hip and groin she ultimately elected to proceed with surgery. My recommendation given the patient's age and relatively poor bone quality as well as alteration in anatomy from her valgus impacted femoral neck fracture was to perform a direct anterior total hip arthroplasty. I had a long discussion with the patient in the office on the potential risks and complications of an elective total hip replacement through a direct anterior approach. Risks discussed include, but are certainly not limited to, risks from anesthesia, superficial infection requiring local wound care or antibiotics, deep layton-prosthetic joint infection and the treatment required to eradicate infection, intraoperative fracture, postoperative periprosthetic fracture, damage to local blood vessels or nerves particularly the lateral femoral cutaneous nerve, delayed wound healing requiring local wound care or possibly surgical debridement, hip dislocation, leg length discrepancy, soft tissue irritation around the total hip implant such as iliopsoas tendinitis or trochanteric bursitis, wear and osteolysis from the implants, squeaking or audible noises, groin pain, thigh pain, heterotopic ossification, stiffness, aseptic loosening of the implants, dissatisfaction with surgical outcome, need for revision surgery, DVT, PE, swelling of the operative extremity, acute coronary event, stroke, failure to thrive, and possibly loss of life or limb. The patient understands that while these are the most common complications after an elective hip replacement there are certainly other less common complications possible. They were given ample time to ask questions regarding the potential complications of a hip replacement. Following our discussion the patient provided their verbal and written consent to go forward with an elective total hip replacement. Operative Findings: There was a subacute valgus impacted femoral neck fracture. The patient had Ifeanyi B/C bone on x-ray and had relatively poor bone quality intraoperatively. Given this and her history of fracture I elected to use cemented femoral fixati on to lower her risk of periprosthetic fracture. Description of Procedure: The patient was identified in the preoperative holding area and the correct hip was marked with my initials. I reviewed the procedure and consent with the patient. All of their questions were answered. The patient was then brought back into the operating room by anesthesia. While on the [facility] anesthesia was administered by the anesthesia team. Preoperative antibiotics and tranexamic acid were also given. After the patient was under anesthesia I examined their ankles to determine their preoperative leg length discrepancy. The skin over the anterior aspect of the hip was shaved to remove hair over the site of planned incision. Both feet and ankles were padded with webril and boots for the [place] were applied. The patient was then carefully transferred onto the [place] table. A perineal post was immediately placed. The arms were placed on arm holders and were well-padded. Both boots were secured to the spars on the [place] table. The patient was positioned so that the pelvis was centered over the post. Nonsterile drapes were applied. A timeout was performed identifying the correct patient, operative extremity, and procedure. At this point fluoroscopy was brought in to take preoperative images of the pelvis and operative hip. Using the standing AP pelvis from the office as a template, a comparable image was obtained with fluoroscopy. A metallic bar was used to create a bi-ischial line for use as a reference to leg length adjustments during the procedure. Global offset was also measured on both the operative and nonoperative leg. Fluoroscopy was then brought out and a pre-scrub using a chlorhexidine scrub brush was performed. The operative limb was then prepped and draped in the standard sterile fashion. An anterior longitudinal incision was made lateral and distal to the ASIS. The skin and subcutaneous tissues were incised sharply. The underlying tensor fascia was identified and incised in its midportion. The fascia was dissected free from the underlying muscle and the muscle belly was retracted. A blunt tipped cobra retractor was placed over the superior neck under the muscle fibers of the gluteus minimus. The deep enveloping fascia of the tensor was incised. The anterior leash of vessels were then identified and cauterized. The fascia between the rectus and the capsule was then incised and the pre-capsular fat was excised. A second Cobra was placed inferior to the neck. The interval between the rectus and iliocapsularis and the hip capsule was developed and a retractor was placed carefully over the anterior rim of the acetabulum. A T-shaped anterior capsulotomy was performed. The superior capsular leaflet was left in place in the inferior capsular flap was excised. The Cobra retractors were placed intracapsularly. We then made a femoral neck osteotomy according to preoperative and intraoperative templating and confirmed the level of the osteotomy using fluoroscopic imaging. The femoral head was removed, passed off to the back table, and sized. The superior capsular flap was excised. Retractors were placed circumferentially exposing the acetabulum. We then circumferentially debrided the acetabulum free of labrum and osteophytes. The pulvinar was removed to fully visualize the cotyloid fossa. We then sequentia lly reamed to achieve peripheral fit and excellent bleeding subchondral bone. The socket was thoroughly irrigated. The acetabular component was impacted into the appropriate position using fluoroscopy to guide version, inclination, and depth of insertion taking care to have a comparable image of the AP pelvis to the standing image taken in the office. An excellent press-fit was achieved and final position was confirmed using fluoroscopy. The press fit was augmented with bony cancellus dome screws. The liner was then impacted into the socket. Attention was then turned to the femur. The remnant dorsal lateral capsule was excised. The short external rotators were visible and protected. A bone hook was used to confirm appropriate translation of the trochanter away from the acetabulum. The leg was then extended and adducted and the bone hook was used to elevate the femur for broaching. On inspection of the patient's proximal femur, they appeared to have poor bone quality so I elected to proceed with cemented fixation of the femoral component. A box osteotome and blunt tipped canal sound was then utilized to gain access to the femoral canal. We then sequentially broached the femur in appropriate anteversion until torsional stability was achieved and the implant was felt to have reached the appropriate size to allow trialing. The neck cut was brought flush to the trial broach with a calcar planar. A trial neck and head were then placed onto the broach and the hip was atraumatically reduced under direct visualization. External rotation to 90 was performed to assess stability. Fluoroscopy was brought in. An AP and lateral fluoroscopic image of the proximal femur was obtained to assess position and fill of the trial broach. An AP of the pelvis was then obtained and matched to the preoperative image taken. A bi-ischial bar was then placed and measurements were taken to assess changes in length and offset. The hip was then carefully dislocated, the proximal femur was exposed, and the trial implants were removed. The proximal femur was then prepared for cementing. The canal was thoroughly irrigated with pulsatile lavage to remove blood and marrow contents. A cement restrictor was placed to a depth just distal to the tip of the final implant. Epinephrine-soaked gauze was then packed into the proximal femur. 2 bags of cement were then mixed using a centrifuge and placed into a cement gun. Anesthesia was notified that cementing was about to commence to make sure the patient was appropriately ventilated and hydrated. Once the cement had reached appropriate consistency, the cement gun was used to fill the canal in a retrograde fashion starting at the restrictor. Cement was then pressurized into the canal with a blue tipped certified personal chef. The stem was then carefully introduced into the cement taking care to guide the implant into appropriate version. The stem was held in position until the cement had fully set. All extra cement was removed while the cement was hardening. The trunnion was cleansed and the final head was tapped into place to engage the Lopez taper. The acetabulum was irrigated and visualized to be free of debris. The hip was carefully reduced. Stability was checked clinically with external rotation to 90 and there was no evidence of instability. Final fluoroscopic images were taken. The wound was then thoroughly irrigated and soaked with a dilute Betadine rinse for 3 minutes. 3 L of sterile saline was irrigated through the wound using pulsatile lavage. Local anesthetic cocktail was injected into the soft tissues around the surgical field. The wound was then closed in layers. A sterile dressing was placed over the surgical incision. The drapes were taken down and the patient was carefully transferred off of the [place] table. Following removal of the boots the leg lengths felt acceptable. The patient was then taken to recovery room having tolerated the procedure well. Benito Hobbs PA-C was required as a skilled clinical assistant for patient positioning, surgical exposure, retraction, placement of implants, and closure of the surgical wound. PLAN: The patient can weight-bear as tolerated on the operative extremity. DVT prophylaxis with aspirin 81 mg twice a day based on preoperative risk stratification. Physical therapy for gait training. Patient is going to attempt to leave as an outpatient. As long as her pain is controlled and she passes physical therapy and okay with this.
[2022-10-25 10:29] VITALS: TEMP 98.1
[2022-10-25] MEDS ORDERED: HYDROcodone/APAP 5-325MG 1 EACH TAB PO PRN ×2 (10:30)
[2022-10-25 10:35] VITALS: RESP 16
--- NOTE | 2022-10-25 10:46 | FL ---
Intraoperative/procedural fluoroscopic services were provided. Total fluoroscopy time is 55 seconds w ith a total of 11 submitted images to PACS. Please see the operative/procedural note for further deta ils. DAP: 3.07197 Gycm2
[2022-10-25 12:16] VITALS: BP 106/64; PULSE 86
== END 2022-10-25 12:49 | disposition home health service (06) ==
LOC: OR 05:52
PROVIDERS: ATTEND Orthopaedic Surgery
DX: S72.002A Fracture of unspecified part of neck of left femur, initial encounter for closed fracture (principal); M21.052 Valgus deformity, not elsewhere classified, left hip; M16.12 Unilateral primary osteoarthritis, left hip; M85.80 Other specified disorders of bone density and structure, unspecified site; W18.30XA Fall on same level, unspecified, initial encounter; M21.752 Unequal limb length (acquired), left femur; G89.18 Other acute postprocedural pain; I10 Essential (primary) hypertension; E78.5 Hyperlipidemia, unspecified; Z79.899 Other long term (current) drug therapy
CPT/HCPCS: 27130; 64447; 97530; 97161; 86900; 86901; 86850; 73501; C1713 ×2; J0171; J2250; J0330; J1100; J2710; J0690; J2405; J3010; J1170; J2795; J1885; J2370; J2704; J2001

== ENCOUNTER → 2023-05-22 | Outpatient (CLI) | payer BC ==
--- NOTE | 2023-05-23 18:33 | MM ---
Reason for Exam: Screening (asymptomatic). Last mammogram was performed 1 year(s) and 1 month(s) ago. Patient History: Menarche at age 13. First Full-Term at age 22. Left ovary removed at age 46. Right ovary removed at age 46. Hysterectomy at age 46. Postmenopausal. Estrogen for 6 years from age 46 until age 52. Patient used Hormonal Contraceptives for 3 years. Risk Values: Katharine 5 year model risk: 1.5%. NCI Lifetime model risk: 5.2%. Prior Study Comparison: 09/05/2020 Right Diagnostic Mammogram, [facility]. 04/06/2021 Bilateral Screening Mammogram, [facility]. 05/17/2022 Bilateral MG 3D screening mammo w/cad, [facility]. Tissue Density: The breast tissue is extremely dense which could obscure a lesion on mammography. Findings: Analyzed By CAD. Pattern appears symmetrical and stable. No significant interval change is evident. Scattered benign calcifications are present bilaterally. Surgical clips are within the right breast. No significant interval change is evident No suspicious groups of microcalcifications, spiculated or lobular masses, architectural distortion or other secondary signs of malignancy are mammographically apparent. Overall Assessment: Benign, BI-RAD 2 Management: Screening Mammogram of both breasts in 1 year. A negative mammogram report should not preclude additional follow up of suspicious palpable abnormalities. Patient should continue monthly self breast exam. A clinical breast exam by your physician is recommended on an annual basis and results should be correlated with mammographic findings. Electronically signed and approved by: Alfredo English D.O. Radiologis
== END | disposition home or self-care (01) ==
LOC: RADMAMWWP 08:26
PROVIDERS: ATTEND Family Medicine
DX: Z12.31 Encounter for screening mammogram for malignant neoplasm of breast (principal); Z78.0 Asymptomatic menopausal state
CPT/HCPCS: 77063; 77067

== ENCOUNTER → 2024-07-21 | Outpatient (CLI) | payer BC ==
--- NOTE | 2024-07-21 15:03 | MM ---
Reason for Exam: Screening (asymptomatic). Last mammogram was performed 1 year(s) and 2 month(s) ago. Patient History: Menarche at age 13. First Full-Term at age 22. Left ovary removed at age 46. Right ovary removed at age 46. Hysterectomy at age 46. Postmenopausal. Estrogen for 6 years from age 46 until age 52. Patient used Hormonal Contraceptives for 3 years. Risk Values: Katharine 5 year model risk: 1.5%. NCI Lifetime model risk: 5.0%. Prior Study Comparison: 04/06/2021 Bilateral Screening Mammogram, [facility]. 05/17/2022 Bilateral MG 3D screening mammo w/cad, [facility]. 05/22/2023 Bilateral MG 3D screening mammo w/cad, [facility]. Tissue Density: The breasts are heterogeneously dense, which may obscure small masses. Findings: Analyzed By CAD. Surgical clips medial right breast. Scattered benign round calcifications are redemonstrated bilaterally. Areas of asymmetric density appear unchanged. There is no suspicious group of microcalcifications or new suspicious mass in either breast. Overall Assessment: Benign, BI-RAD 2 Management: Screening Mammogram of both breasts in 1 year. Patient should continue monthly self-breast exams. A clinical breast exam by your physician is recommended on an annual basis. This exam should not preclude additional follow-up of suspicious palpable abnormalities. Note on Katharine scores and lifetime risk: 1. A Katharine score greater than 3% is considered moderate risk. If this is the case, consider specialist referral to assess eligibility for a risk reducing agent. 2. If overall lifetime risk for the development of breast cancer is 20% or higher, the patient may qualify for future screening with alternating mammogram and breast MRI. [facility], , 07/21/2024 3:00 PM. Electronically signed and approved by: Desiree Salomon M.D. Radiologist
== END | disposition home or self-care (01) ==
LOC: RADMAMWWP 09:07
PROVIDERS: ATTEND Family Medicine
DX: Z12.31 Encounter for screening mammogram for malignant neoplasm of breast (principal); R92.333 Mammographic heterogeneous density, bilateral breasts; Z78.0 Asymptomatic menopausal state; Z92.0 Personal history of contraception
CPT/HCPCS: 77063; 77067